=== PATIENT | female | born 1945 | race African-American/Black ===

== ENCOUNTER 2022-05-16 14:52 | Inpatient (IN) | payer BC, MEDICAID ==
[~2022-05-16] VITALS: Ht 160 cm; Wt 62.1 kg
[2022-05-16 16:41] LABS: BASOPHILS % 0.3 % (0.0-2.0); EOSINOPHILS % 1.4 % (0.0-5.0); HEMATOCRIT. 34.4 % (36.0-48.0); HEMOGLOBIN. 11.5 g/dL (12.0-16.0); LYMPHOCYTES % 34.1 % (20.0-50.0); MEAN CORPUSCULAR VOLUME 87.2 fL (81.0-99.0); MEAN PLATELET VOLUME 8.4 fl (7.4-10.4); MONOCYTES % 8.7 % (2.0-8.0); NEUTROPHILS % 55.5 % (40.0-76.0); PLATELET 195 x1000/uL (130-400); RED BLOOD CELL COUNT 3.95 mill/uL (4.2-5.4); RED CELL DISTRIBUTION WIDTH 13.6 % (11.6-14.6)
[2022-05-16 16:43] LABS: CHLORIDE 108 mEq/L (98-107)
[2022-05-16 16:58] LABS: CREATINE KINASE 411 IU/L (26-192); ETHANOL BLOOD < 10 mg/dL
[2022-05-16 17:55] LABS: CLARITY URINE CLEAR (CLEAR); COLOR URINE YELLOW (YELLOW); KETONES URINE TRACE (NEGATIVE); LEUKOCYTE ESTERASE URINE NEGATIVE (NEGATIVE); NITRITE URINE NEGATIVE (NEGATIVE); OCCULT BLOOD URINE NEGATIVE (NEGATIVE); PH URINE 5.5 (4.5-8.0); PROTEIN URINE NEGATIVE (NEGATIVE)
[2022-05-16] MEDS ORDERED: POTASSIUM CHLORIDE 20MEQ TABLET SR PO ONE (18:15)
[2022-05-16 18:24] LABS: *AMPHETAMINES SCREEN URINE NEGATIVE (NEGATIVE); *BARBITURATES SCREEN URINE NEGATIVE (NEGATIVE); *BENZODIAZEPINES SCREEN URINE NEGATIVE (NEGATIVE); *COCAINE SCREEN URINE NEGATIVE (NEGATIVE); CANNABINOID URINE SCREEN NEGATIVE (NEGATIVE); METHADONE URINE SCREEN NEGATIVE (NEGATIVE); OPIATES URINE SCREEN NEGATIVE (NEGATIVE); PHENCYCLIDINE URINE SCREEN NEGATIVE (NEGATIVE)
[2022-05-16] MEDS ORDERED: DOCUSATE SODIUM 100MG CAPSULE PO PRN (22:00)
[2022-05-16] MEDS ORDERED: GUAIFENESIN 200MG/10ML SUGAR FREE UDC PO PRN (22:00)
[2022-05-16] MEDS ORDERED: CLONIDINE 0.1MG TABLET PO PRN (22:00)
[2022-05-16] MEDS ORDERED: IPRATROPIUM/ALBUTEROL 0.5-3(2.5)MG/3ML NEB HHN PRN (22:00)
[2022-05-16] MEDS ORDERED: SODIUM CHLORIDE 0.45% 1,000 ML IV ONE (22:00)
[2022-05-16] MEDS ORDERED: ACETAMINOPHEN 325MG TABLET PO PRN ×2 (22:00)
[2022-05-16] MEDS ORDERED: ONDANSETRON HCL 4MG/2ML INJ IV PRN (22:00)
[2022-05-16] MEDS ORDERED: KCL 20MEQ/100ML PREMIX 100 ML IV NR (23:30)
[2022-05-17] MEDS: ENOXAPARIN 40MG/0.4ML SYR SUBCUT SCH ×2 (02:21→21:50)
[2022-05-17 02:30] LABS: FOLIC ACID (FOLATE) SERUM 7.2 ng/mL (>5.38)
[2022-05-17] MEDS ORDERED: KCL 20MEQ/100ML PREMIX 100 ML IV NR ×3 (04:00)
[2022-05-17 05:16] LABS: BASOPHILS % 0.3 % (0.0-2.0); EOSINOPHILS % 2.1 % (0.0-5.0); HEMATOCRIT. 32.7 % (36.0-48.0); HEMOGLOBIN. 10.9 g/dL (12.0-16.0); LYMPHOCYTES % 43.2 % (20.0-50.0); MEAN CORPUSCULAR HEMOGLOBIN 28.9 pg (28.0-32.0); MEAN CORPUSCULAR VOLUME 87.1 fL (81.0-99.0); MEAN PLATELET VOLUME 9.6 fl (7.4-10.4); MONOCYTES % 9.6 % (2.0-8.0); NEUTROPHILS % 44.8 % (40.0-76.0); PLATELET 204 x1000/uL (130-400); RED BLOOD CELL COUNT 3.76 mill/uL (4.2-5.4); RED CELL DISTRIBUTION WIDTH 13.7 % (11.6-14.6)
[2022-05-17 05:24] LABS: CHLORIDE 110 mEq/L (98-107)
[2022-05-17 05:35] LABS: CREATINE KINASE 294 IU/L (26-192); HDL CHOLESTEROL 72 mg/dL (40-59); LDL CHOLESTEROL 123 mg/dL (5-100); T4 FREE 0.89 ng/dL (0.76-1.46)
[2022-05-17 07:30] VITALS: BP 141/76
[2022-05-17 08:00] VITALS: BP 141/76
[2022-05-17] MEDS: AMLODIPINE 10MG TABLET PO SCH (09:35)
[2022-05-17 12:00] VITALS: BP 134/76
[2022-05-17 16:00] VITALS: BP 123/71
[2022-05-17] MEDS ORDERED: IPRATROPIUM BROMIDE (0.02%) 0.5MG/2.5ML NEB HHN PRN (16:00)
[2022-05-17] MEDS ORDERED: ALBUTEROL (0.083%) 2.5MG/3ML NEB HHN PRN (16:00)
[2022-05-17 20:00] VITALS: BP 159/85
[2022-05-17] MEDS: FAMOTIDINE 20MG TABLET PO SCH (21:50)
[2022-05-18] VITALS: BP 152/70
[2022-05-18 04:00] VITALS: BP 145/70
[2022-05-18 08:00] VITALS: BP 100/70
[2022-05-18] MEDS: AMLODIPINE 10MG TABLET PO SCH (09:00)
[2022-05-18 10:07] LABS: HIV SCREEN 4G Non Reactive (Non Reactive)
[2022-05-18 12:00] VITALS: BP 134/70
[2022-05-18 16:00] VITALS: BP 126/72
[2022-05-18 20:00] VITALS: BP 139/70
[2022-05-18] MEDS: ENOXAPARIN 40MG/0.4ML SYR SUBCUT SCH (21:02)
[2022-05-18] MEDS: FAMOTIDINE 20MG TABLET PO SCH (21:02)
[2022-05-19] VITALS: BP 135/78
[2022-05-19 04:00] VITALS: BP 114/58
[2022-05-19 08:00] VITALS: BP 122/70
[2022-05-19] MEDS ORDERED: AMLO10TA80 PO (09:08)
[2022-05-19] MEDS: AMLODIPINE 10MG TABLET PO SCH (10:20)
[2022-05-19 12:00] VITALS: BP 108/55
[2022-05-19 16:00] VITALS: BP 143/82
[2022-05-19 20:00] VITALS: BP 166/58
[2022-05-19] MEDS: FAMOTIDINE 20MG TABLET PO SCH (21:35)
[2022-05-19] MEDS: ENOXAPARIN 40MG/0.4ML SYR SUBCUT SCH (21:36)
[2022-05-20] VITALS: BP 145/63
[2022-05-20 04:00] VITALS: BP 111/70
[2022-05-20 08:00] VITALS: BP 119/58
[2022-05-20] MEDS: AMLODIPINE 10MG TABLET PO SCH (08:37)
[2022-05-20 12:00] VITALS: BP 123/62
[2022-05-20 16:17] VITALS: BP 120/72
[2022-05-20 20:00] VITALS: BP 116/61
[2022-05-20] MEDS: ENOXAPARIN 40MG/0.4ML SYR SUBCUT SCH (23:11)
[2022-05-20] MEDS: FAMOTIDINE 20MG TABLET PO SCH (23:11)
[2022-05-21] VITALS: BP 132/79
[2022-05-21 04:00] VITALS: BP 112/60
[2022-05-21 08:00] VITALS: BP 138/87
[2022-05-21] MEDS: AMLODIPINE 10MG TABLET PO SCH (09:26)
[2022-05-21 12:00] VITALS: BP 109/62
[2022-05-21 16:00] VITALS: BP 101/71
[2022-05-21 20:00] VITALS: BP 123/53
[2022-05-21] MEDS: ENOXAPARIN 40MG/0.4ML SYR SUBCUT SCH (21:05)
[2022-05-21] MEDS: FAMOTIDINE 20MG TABLET PO SCH (21:05)
[2022-05-22] VITALS: BP 123/76
[2022-05-22 04:00] VITALS: BP 96/55
[2022-05-22 08:00] VITALS: BP 116/68
[2022-05-22] MEDS: AMLODIPINE 10MG TABLET PO SCH (09:44)
[2022-05-22 12:00] VITALS: BP 116/56
[2022-05-22 16:00] VITALS: BP 108/50
[2022-05-22 20:00] VITALS: BP 127/71
[2022-05-22] MEDS: FAMOTIDINE 20MG TABLET PO SCH (22:44)
[2022-05-22] MEDS: ENOXAPARIN 40MG/0.4ML SYR SUBCUT SCH (22:44)
[2022-05-23] VITALS: BP 140/77
[2022-05-23 04:00] VITALS: BP 111/64
[2022-05-23 08:00] VITALS: BP 145/86
[2022-05-23] MEDS: AMLODIPINE 10MG TABLET PO SCH (10:47)
== END 2022-05-23 12:03 | disposition home or self-care (01) | DRG 922 ==
LOC: ER 14:52 → MICUSO 21:09 → EDBEDREQTM 21:13 → EDBEDREQ 21:13 → 6EST 05-17 06:45
PROVIDERS: ADMIT Internal Medicine; ATTEND Internal Medicine
DX: T76.21XA Adult sexual abuse, suspected, initial encounter (principal); E43 Unspecified severe protein-calorie malnutrition; G92.8 Other toxic encephalopathy; N39.0 Urinary tract infection, site not specified; K62.5 Hemorrhage of anus and rectum; E87.6 Hypokalemia; I10 Essential (primary) hypertension; R73.9 Hyperglycemia, unspecified; F03.90 Unspecified dementia, unspecified severity, without behavioral disturbance, psychotic disturbance, mood disturbance, and anxiety; L89.159 Pressure ulcer of sacral region, unspecified stage; M48.02 Spinal stenosis, cervical region; S09.93XA Unspecified injury of face, initial encounter; K27.9 Peptic ulcer, site unspecified, unspecified as acute or chronic, without hemorrhage or perforation; E78.5 Hyperlipidemia, unspecified; R62.7 Adult failure to thrive; Z68.24 Body mass index [BMI] 24.0-24.9, adult; Z86.73 Personal history of transient ischemic attack (TIA), and cerebral infarction without residual deficits; Z88.0 Allergy status to penicillin; Z79.899 Other long term (current) drug therapy; Z20.822 Contact with and (suspected) exposure to COVID-19; X58.XXXA Exposure to other specified factors, initial encounter; Y93.89 Activity, other specified; Y92.89 Other specified places as the place of occurrence of the external cause; Y99.8 Other external cause status
CPT/HCPCS: 36415; 70486; 71045; 73560; 80053; 80061; 80305; 80307; 80320; 80329; 81003; 82140; 82550; 82607; 82746; 82962; 83036; 83880; 84439; 84443; 84484; 85025; 86592; 87389; 87426; 93005; 93306; 97110; 97116; 97162; 97166; 97535; 99285; J1650; J3480; G0480